=== PATIENT | female | born 1990 | race Two or more races ===

== ENCOUNTER 2017-06-02 09:11 | Emergency (ER) | payer OTHER ==
[~2017-06-02] VITALS: Ht 167.6 cm; Wt 94.5 kg
[~2017-06-02 09:11] MED LIST: PRENATAL VITAMIN PO
[2017-06-02 09:14] VITALS: BP 120/79
== END 2017-06-02 12:19 | disposition home or self-care (01) ==
LOC: ED 09:48
DX: O20.0 Threatened abortion (principal); Z3A.01 Less than 8 weeks gestation of pregnancy
CPT/HCPCS: 36415; 76801; 81003; 84702; 86901; 99285

== ENCOUNTER 2017-07-05 14:57 | Emergency (ER) | payer OTHER ==
[~2017-07-05] VITALS: Ht 170.2 cm; Wt 96.3 kg
[2017-07-05 16:04] LABS: HEMATOCRIT 40.8 % (34.6-47.8); HEMOGLOBIN 13.8 g/dL (11.7-16.4); WHITE BLOOD COUNT 12.8 x10^3/uL (3.4-10)
[2017-07-05 16:14] LABS: PATH.CAST-FLAG NOT PRESENT; SPERM-FLAG NOT PRESENT; SRC-FLAG NOT PRESENT; XTAL-FLAG NOT PRESENT; YLC-FLAG NOT PRESENT
[2017-07-05 16:27] VITALS: BP 122/65
== END 2017-07-05 16:50 | disposition home or self-care (01) ==
LOC: ED 15:39
DX: O20.0 Threatened abortion (principal); Z3A.11 11 weeks gestation of pregnancy
CPT/HCPCS: 36415; 76801; 81001; 84702; 85025; 86901; 99285